=== PATIENT | female | born 1955 | race Caucasian/White ===

== ENCOUNTER 2020-08-23 20:22 | Emergency (ER) | payer MEDICARE ==
[~2020-08-23] VITALS: Ht 157.5 cm; Wt 65.5 kg
[2020-08-23] MEDS ORDERED: METOCLOPRAMIDE HCL 10 MG/2 ML VIAL. IVP ONE (20:45)
[2020-08-23] MEDS ORDERED: IV NORMAL SALINE 1000ML BAG 1,000 ML IV ONE ×2 (20:45→23:00)
[2020-08-23] MEDS ORDERED: HYDROmorphone 2 MG/ML VIAL IVP ONE (20:45)
[2020-08-23] MEDS ORDERED: FAMOTIDINE 20 MG/2 ML VIAL IVP ONE (20:45)
[2020-08-23 20:51] LABS: BASO # 0.1 x10^3/uL (0.0-0.2); BASO % 1 % (0-3); EOS % 1 % (0-3); HEMATOCRIT 35.8 % (36.0-47.0); HEMOGLOBIN 12.2 g/dL (12.0-15.5); LYMPH # 0.8 x10^3/uL (1.0-4.8); LYMPH % 9 % (24-48); MEAN CORPUSCULAR HEMOGLOBIN 29 pg (25-35); MEAN CORPUSCULAR HGB CONC 34 g/dL (31-37); MEAN CORPUSCULAR VOLUME 85 fL (79-100); MONO # 0.5 x10^3/uL (0.0-1.1); MONO % 6 % (0-9); NEUT # 7.4 x10^3/uL (1.8-7.7); NEUT % 84 % (31-73); PLATELET COUNT 199 x10^3/uL (140-400); RED BLOOD COUNT 4.23 x10^6/uL (3.50-5.40); RED CELL DISTRIBUTION WIDTH 12.9 % (11.5-14.5); WHITE BLOOD COUNT 8.8 x10^3/uL (4.0-11.0)
--- NOTE | 2020-08-23 20:56 | PHYS DOC ---
General Adult EDM: Chief Complaint: NAUSEA/VOMITING/DIARRHA HPI: HPI: 65 yo F PMH nephrolithiasis presents to the ED bibems with complaints of right flank pain radiating into her groin with gross hematuria after patient had a lithotripsy with Dr. Ryan at [facility] earlier today, associated nausea. Patient states she feels as if her stones are still stuck and was warned she may need a second lithotripsy. Pt reports she recently finished keflex and is having increased urinary frequency and dysuria. Review of Systems: Review of Systems: Constitutional: Denies fever or chills. [] Eyes: Denies change in visual acuity. [] HENT: Denies nasal congestion or sore throat. [] Respiratory: Denies cough or shortness of breath. [] Cardiovascular: Denies chest pain or edema. [] GI: Denies abdominal pain, vomiting, bloody stools or diarrhea. [] : Denies suprapubic pain Musculoskeletal: Denies back pain or joint swelling Integument: Denies rash. [] Neurologic: Denies headache, focal weakness or sensory changes. [] Endocrine: Denies polyuria or polydipsia. [] Lymphatic: Denies swollen glands. [] Psychiatric: Denies depression or anxiety. [] Heart Score: Risk Factors: Risk Factors: DM, Current or recent (<one month) smoker, HTN, HLP, family history of CAD, obesity. Risk Scores: Score 0 - 3: 2.5% MACE over next 6 weeks - Discharge Home Score 4 - 6: 20.3% MACE over next 6 weeks - Admit for Clinical Observation Score 7 - 10: 72.7% MACE over next 6 weeks - Early Invasive Strategies Current Medications: Current Medications Medications (Trade) Dose Ordered Sig/Debi Start Time Stop Time Status Last Admin Dose Admin Famotidine (Pepcid Vial) 20 mg 1X ONCE 08/23/20 20:45 08/23/20 20:52 DC Hydromorphone HCl (Dilaudid) 1 mg 1X ONCE 08/23/20 20:45 08/23/20 20:55 DC Metoclopramide HCl (Reglan Vial) 10 mg 1X ONCE 08/23/20 20:45 08/23/20 20:52 DC Sodium Chloride 1,000 ml @ 1,000 mls/hr 1X ONCE 08/23/20 20:45 11/9/20 21:44 Allergies: Allergies: Allergies Coded Allergies Type Severity Reaction Last Updated Verified Penicillins Allergy Unknown 08/23/20 Yes Sulfa (Sulfonamide Antibiotics) Allergy Unknown 08/23/20 Yes amoxicillin Allergy Unknown 08/23/20 Yes clavulanic acid Allergy Unknown 08/23/20 Yes hydromorphone Allergy Unknown 08/23/20 Yes morphine Allergy Unknown 08/23/20 Yes sulfamethoxazole Allergy Unknown 08/23/20 Yes trimethoprim Allergy Unknown 08/23/20 Yes Physical Exam: PE: Constitutional: Well developed, well nourished, no acute distress, non-toxic appearance. [] HENT: Normocephalic, atraumatic, bilateral external ears normal, oropharynx moist, no oral exudates, nose normal. [] Eyes: PERRLA, EOMI, conjunctiva normal, no discharge. [] Neck: Normal range of motion, no tenderness, supple, no stridor. [] Cardiovascular:Heart rate regular rhythm, no murmur [] Lungs & Thorax: Bilateral breath sounds clear to auscultation [] Abdomen: Bowel sounds normal, soft, no tenderness, no masses, no pulsatile masses. [] Skin: Warm, dry, no erythema, no rash. [] Back: No tenderness, no CVA tenderness. [] Extremities: No tenderness, no cyanosis, no clubbing, ROM intact, no edema. [] Neurologic: Alert and oriented X 3, normal motor function, normal sensory function, no focal deficits noted. [] Psychologic: Affect normal, judgement normal, mood normal. [] Current Patient Data: Labs: Laboratory Tests Test 08/23/20 20:25 White Blood Count 8.8 x10^3/uL (4.0-11.0) Red Blood Count 4.23 x10^6/uL (3.50-5.40) Hemoglobin 12.2 g/dL (12.0-15.5) Hematocrit 35.8 % (36.0-47.0) L Mean Corpuscular Volume 85 fL (79-100) Mean Corpuscular Hemoglobin 29 pg (25-35) Mean Corpuscular Hemoglobin Concent 34 g/dL (31-37) Red Cell Distribution Width 12.9 % (11.5-14.5) Platelet Count 199 x10^3/uL (140-400) Neutrophils (%) (Auto) 84 % (31-73) H Lymphocytes (%) (Auto) 9 % (24-48) L Monocytes (%) (Auto) 6 % (0-9) Eosinophils (%) (Auto) 1 % (0-3) Basophils (%) (Auto) 1 % (0-3) Neutrophils # (Auto) 7.4 x10^3/uL (1.8-7.7) Lymphocytes # (Auto) 0.8 x10^3/uL (1.0-4.8) L Monocytes # (Auto) 0.5 x10^3/uL (0.0-1.1) Eosinophils # (Auto) 0.0 x10^3/uL (0.0-0.7) Basophils # (Auto) 0.1 x10^3/uL (0.0-0.2) Laboratory Tests 08/23/20 20:25 EKG: EKG: sinus at 73bpm, lad, normal intervals, TWI III, no velma/stds Radiology/Procedures: Radiology/Procedures: []IMAGING REPORT Signed PATIENT: BEE JOHN ACCOUNT: [id number] : 1955 LOCATION: ER AGE: 65 SEX: F EXAM STATUS: REG ER ORD. PHYSICIAN: BANDAR VALLES DO REASON: right flank pain, PROCEDURE: CT ABDOMEN PELVIS WO CONTRAST Exam: CT of abdomen and pelvis without contrast INDICATION: Right flank pain TECHNIQUE: Sequential axial images through the abdomen and pelvis obtained without IV contrast. Sagittal and coronal reformatted images were reconstructed from the axial data and reviewed. Comparisons: None FINDINGS: Heart size is normal. No pericardial effusion. Visualized lung bases are clear. No pleural effusion. Evaluation of solid organs is limited secondary to noncontrast technique. Liver, spleen, pancreas, and adrenals are unremarkable. Gallbladder is mildly distended. There is moderate right-sided hydronephrosis. Numerous ureteral calculi noted predominantly at the distal right ureter measuring between 3 and 7 mm. Additionally there are numerous nonobstructing renal calculi bilaterally. Bladder is partially distended and not well evaluated. Uterus is nonenlarged. No abnormal adnexal mass. Large and small bowel are unremarkable. Appendix is not identified. No free intra-abdominal air or fluid. No obstruction. Abdominal aorta has a normal course and caliber. No enlarged intra-abdominal lymph nodes are identified. No suspicious osseous lesions or acute fractures. IMPRESSION: 1. Numerous distal right ureteral calculi measuring between 3 and 7 mm with associated moderate right-sided hydronephrosis. This appearance can sometimes be seen in the setting of post lithotripsy, correlate with procedural history. 2. Bilateral nonobstructing renal calculi. Exposure: One or more of the following in the visualized dose reduction techniques were utilized for this examination: 1. Automated exposure control 2. Adjustment of the MA and/or KV according to patient size 3. Use of iterative of reconstructive technique Electronically signed by: Judith Garcia MD (08/23/2020 10:35 PM) [facility] DICTATED and SIGNED BY: JUDITH GARCIA MD DATE: 08/23/202234 Course & Med Decision Making: Course & Med Decision Making Pertinent Labs and Imaging studies reviewed. (See chart for details) Concern for right sided obstructive uropathy with uti and gross hematuria, s/p failed lithotripsy in past 12 hours. Pt here with her friend who reports she's never seen her in so much pain. Patient treated with Rocephin, IV fluids, antiemetics and Dilaudid. Due to COVID-19 pandemic, multiple hospitals in the [facility] area are on high-volume and are not accepting transfers. I did speak with urology at [facility] ([place] who were happy to accept patient although there was no accepting physician when speaking with transfer center. I also spoke with transfer centers for [facility], [facility], [facility], [facility], [facility], , and [facility]-all these hospitals are full and on high-volume, not excepting transfers. [facility] did accept for urology evaluation and management. It took well over 2 hours to find an accepting hospital. Pt aware of this and agrees with plan for transfer for higher level of care. Pt stable at time of transfer -transfer was delayed due to ems transportation delay times. Dragon Disclaimer: Dragon Disclaimer: This electronic medical record was generated, in whole or in part, using a voice recognition dictation system. Departure Departure Impression: Primary Impression: Obstructive uropathy Additional Impressions: UTI (urinary tract infection) Hematuria Disposition: 05 DC/TRF OTHER TYPE INSTITUTI (accepted by Dr. Harris (internal medicine)) Condition: STABLE BANDAR VALLES DO Aug 23, 2020 20:56
[2020-08-23] MEDS ORDERED: diphenhydrAMINE HCL 25 MG CAPSULE PO ONE (21:00)
[2020-08-23] MEDS ORDERED: ONDANSETRON PF 4 MG/2 ML VIAL. IVP ONE (21:00)
[2020-08-23 21:01] LABS: PROTHROMBIN TIME PATIENT 12.6 SEC (11.7-14.0)
[2020-08-23 21:02] LABS: CALCIUM 9.3 mg/dL (8.5-10.1); CREATININE 0.9 mg/dL (0.6-1.0); GFR 62.5; POTASSIUM 3.5 mmol/L (3.5-5.1)
[2020-08-23 21:08] LABS: ALBUMIN 3.4 g/dL (3.4-5.0); DIRECT BILIRUBIN 0.1 mg/dL (0.0-0.2); MAGNESIUM 1.8 mg/dL (1.8-2.4); TOTAL BILIRUBIN 0.4 mg/dL (0.2-1.0); TOTAL PROTEIN 6.6 g/dL (6.4-8.2)
--- NOTE | 2020-08-23 22:38 | RAD ---
Exam: CT of abdomen and pelvis without contrast INDICATION: Right flank pain TECHNIQUE: Sequential axial images through the abdomen and pelvis obtained without IV contrast. Sagittal and coronal reformatted images were reconstructed from the axial data and reviewed. Comparisons: None FINDINGS: Heart size is normal. No pericardial effusion. Visualized lung bases are clear. No pleural effusion. Evaluation of solid organs is limited secondary to noncontrast technique. Liver, spleen, pancreas, and adrenals are unremarkable. Gallbladder is mildly distended. There is moderate right-sided hydronephrosis. Numerous ureteral calculi noted predominantly at the distal right ureter measuring between 3 and 7 mm. Additionally there are numerous nonobstructing renal calculi bilaterally. Bladder is partially distended and not well evaluated. Uterus is nonenlarged. No abnormal adnexal mass. Large and small bowel are unremarkable. Appendix is not identified. No free intra-abdominal air or fluid. No obstruction. Abdominal aorta has a normal course and caliber. No enlarged intra-abdominal lymph nodes are identified. No suspicious osseous lesions or acute fractures. IMPRESSION: 1. Numerous distal right ureteral calculi measuring between 3 and 7 mm with associated moderate right-sided hydronephrosis. This appearance can sometimes be seen in the setting of post lithotripsy, correlate with procedural history. 2. Bilateral nonobstructing renal calculi. Exposure: One or more of the following in the visualized dose reduction techniques were utilized for this examination: 1. Automated exposure control 2. Adjustment of the MA and/or KV according to patient size 3. Use of iterative of reconstructive technique Electronically signed by: Judith Betancur MD (08/23/2020 10:35 PM) [facility]
[2020-08-24 00:03] LABS: CLARITY,URINE TURBID; COLOR,URINE RED
[2020-08-24 00:11] LABS: BACTERIA,URINE FEW /HPF (0-FEW); RBC,URINE TNTC /HPF (0-2)
[2020-08-24] MEDS ORDERED: cefTRIAXone IV Push 1 GM VIAL. IVP ONE (01:00)
[2020-08-24 01:52] LABS: CLARITY,URINE CLOUDY; COLOR,URINE RED
[2020-08-24 02:00] LABS: RBC,URINE TNTC /HPF (0-2)
[2020-08-24 02:01] LABS: BACTERIA,URINE 0 /HPF (0-FEW)
[2020-08-24] MEDS ORDERED: HYDROmorphone 2 MG/ML VIAL IVP ONE ×2 (03:00→09:00)
--- NOTE | 2020-08-24 08:36 | EKG ---
[facility] [address] [place] [address] Test Date: 2020-08-23 Test Time: 21:58:49 Pat Name: BEE JOHN Department: Room: Gender: F [employer]: : 1955 Requested By: BANDAR VALLES Order Number: [id number] Reading MD: Measurements Intervals [place] Rate: 73 P: 41 WY: 136 QRS: -5 QRSD: 78 T: 10 QT: 406 QTc: 451 Interpretive Statements SINUS RHYTHM ATRIAL PREMATURE COMPLEX(ES) LEFTWARD AXIS QRS(T) CONTOUR ABNORMALITY CONSIDER ANTEROSEPTAL MYOCARDIAL DAMAGE POSSIBLY ABNORMAL ECG RI6.01 No previous ECG available for comparison
[2020-08-24 09:00] VITALS: BP 116/63
--- NOTE | 2020-08-25 16:42 | NUR ---
IP: Attempted to contact pt concerning COVID results. No answer. Left a voicemail to return call/
== END 2020-08-24 09:11 | disposition short-term general hospital (02) ==
LOC: ER 20:22
DX: N39.0 Urinary tract infection, site not specified (principal); R31.0 Gross hematuria; N13.30 Unspecified hydronephrosis; Z20.828 Contact with and (suspected) exposure to other viral communicable diseases; Z88.0 Allergy status to penicillin; Z88.1 Allergy status to other antibiotic agents; Z88.2 Allergy status to sulfonamides; Z88.5 Allergy status to narcotic agent; Z88.8 Allergy status to other drugs, medicaments and biological substances
CPT/HCPCS: 36415; 74176; 80048; 80076; 81001; 83735; 84484; 85025; 85610; 85730; 87086; 87426; 93005; 96361; 96374; 96375; 96376; 99285; J0696; J1170; J2405; J2765; J3490; J7030; Q0163; U0003; C9803